=== PATIENT | female | born 1970 | race African-American/Black ===

== ENCOUNTER 2016-08-29 17:13 | Emergency (ER) | payer OTHER ==
[~2016-08-29] VITALS: Ht 154.9 cm; Wt 81.6 kg
[~2016-08-29 17:13] MED LIST: FLUOXETINE HCL20 M1 PO; VALACYCLOVIR HYD1 GM PO
[2016-08-29] MEDS ORDERED: PREDNISONE20 M1 PO (19:28)
[2016-08-29] MEDS ORDERED: PROAIR HFA8.5 GM INH (19:28)
[2016-08-29] MEDS ORDERED: TESSALON PERLE100 M1 PO (19:28)
[2016-08-29] MEDS ORDERED: IBUPROFEN600 M1 PO (19:28)
[2016-08-29] MEDS ORDERED: CLARITIN10 M1 PO (19:28)
--- NOTE | 2016-08-29 19:28 | ED INFLUENZA/URI COMPLAINT ---
History of Present Illness General Chief Complaint: Upper Respiratory Sx/Fever Stated Complaint: COUGH,FEVER,ACHES Source: patient, old records Exam Limitations: no limitations Vital Signs & Intake/Output Vital Signs & Intake/Output Vital Signs Date Time Temp Pulse Resp B/P Pulse O2 O2 Flow FiO2 Ox Delivery Rate 08/29 1924 Room Air 08/29 1745 98.5 107 20 124/81 96 Room Air Allergies Coded Allergies: No Known Allergies (08/29/16) Reconcile Medications Albuterol Sulfate (Proair Hfa) 90 MCG HFA.AER.AD 2-4 PUF INH Q4-6 PRN PRN shortness of breath Benzonatate (Tessalon Perle) 100 MG CAPSULE 1 CAP PO TID PRN cough Fluoxetine Hydrochloride (Fluoxetine HCl) 20 MG TAB 1 TAB PO DAILY PMS ( Reported) Ibuprofen 600 MG TABLET 1 TAB PO Q6PRN PRN pain with food Loratadine (Claritin) 10 MG TABLET 1 TAB PO DAILY allergy Prednisone 20 MG TABLET 1 TAB PO BID bronchospasm Valacyclovir Hydrochloride 1 GM TAB 1 TAB PO DAILY PRN HERPES (Reported) Triage Note: TRIAGE: PT TO ER C/C PRODUCTIVE COUGH WITH CLEAR PHLEGM, CLEAR MUCOUS FROM NOSE, HEADACHE PAIN, FEVER AND DULL PAIN TO LEFT LOWER ABD/GROIN AREA WHEN COUGHING. ONSET OF S/S WEDNESDAY. Triage Nurses Notes Reviewed? yes Duration: day(s):, constant, continues in ED, getting worse Timing: recent history Severity: moderate Prior Episodes/Possible Cause: allergen, illness exposure No Modifying Factors: none Associated Symptoms: cough, fever/chills, nasal congestion, nasal drainage, wheezing LMP (ages 10-50): unknown : No Patient currently breastfeeds: No HPI: 5 days prior to admission patient complains of runny nose hacking cough anorexia. She notes episodes of wheezing. Yesterday she developed fever to 101 chest pain with cough. She denies nausea vomiting diarrhea abdominal pain dysuria rash headache bleeding Past History Travel History Traveled to [place] past 21 day No Medical History Any Pertinent Medical History? 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 No Review of Systems Review of Systems Constitutional: Reports: see HPI, chills, fever, malaise. EENTM: Reports: see HPI, nasal congestion. Respiratory: Reports: see HPI, cough, wheezing. Cardiovascular: Reports: no symptoms. GI: Reports: no symptoms. Genitourinary: Reports: no symptoms. Musculoskeletal: Reports: no symptoms. Skin: Reports: no symptoms. Neurological/Psychological: Reports: no symptoms. Hematologic/Endocrine: Reports: no symptoms. Immunologic/Allergic: Reports: no symptoms. All Other Systems: Reviewed and Negative Physical Exam Physical Exam General Appearance: well developed/nourished, alert, awake, anxious, mild distress, obese Head: atraumatic, normal appearance Eyes: Bilateral: normal appearance, PERRL, EOMI. Ears, Nose, Throat: normal ENT inspection, moist mucous membrane Neck: normal inspection, supple, full range of motion, trachea midline, lymphadenopathy (R), lymphadenopathy (L) Respiratory: chest non-tender, no respiratory distress, quiet respiration, lungs clear, decreased breath sounds Cardiovascular: regular rate/rhythm, normal peripheral pulses, norml femoral pulses equa Peripheral Pulses: 4+ carotid (R), 4+ carotid (L) Gastrointestinal: normal bowel sounds, soft, non-tender, no organomegaly Back: normal inspection, normal range of motion Extremities: normal inspection, normal capillary refill, normal range of motion, no edema Neurologic/Psych: no motor/sensory deficits, awake, alert, oriented x 3, normal gait, normal mood/affect, log cut off sawyer II-XII nml as tested Reflexes: 2+: bicep (R), bicep (L). Skin: normal color, warm/dry Lymphatic: adenopathy Core Measures Severe Sepsis Present: No Septic Shock Present: No Progress Differential Diagnosis: influenza, pharyngitis, sinusitis Plan of Care: Current Medications Sig/[place] Start time Last Medication Dose Stop Time Status Admin Amoxicillin 750 MG ONCE ONE 08/29 1929 UNVr (Amoxil) 08/29 1930 Guaifenesin/ 10 ML ONCE ONE 08/29 1929 UNVr Dextromethorphan 08/29 1930 (Robitussin Dm) Ibuprofen 600 MG ONCE ONE 08/29 1929 UNVr (Motrin) 08/29 1930 Prednisone 60 MG ONCE ONE 08/29 1929 UNVr 08/29 1930 (COLLETTE SKY,MARICARMEN) Initial ED EKG: none Departure Departure Time of Disposition: 1925 Disposition: HOME OR SELF CARE Condition: Stable Clinical Impression Primary Impression: Bronchitis Referrals: CONNOR COUCH MD (PCP/Family) Departure Forms: Customer Survey General Discharge Information Prescriptions: Current Visit Scripts Prednisone 1 TAB PO BID #10 TAB Ibuprofen 1 TAB PO Q6PRN PRN pain #50 TAB with food Albuterol Sulfate (Proair Hfa) 2-4 PUF INH Q4-6 PRN PRN shortness of breath #1 INHAL Benzonatate (Tessalon Perle) 1 CAP PO TID PRN cough #21 CAP Loratadine (Claritin) 1 TAB PO DAILY #30 TAB Ref 10
[2016-08-29 19:36] VITALS: BP 140/78
== END 2016-08-29 19:43 ==
LOC: ERH 17:13
DX: J40 Bronchitis, not specified as acute or chronic (principal); R07.9 Chest pain, unspecified